=== PATIENT | male | born 1985 | race Two or more races ===

== ENCOUNTER 2024-03-19 18:05 | Emergency (ER) | payer MEDICAID, OTHER ==
[~2024-03-19] VITALS: Ht 180.3 cm; Wt 90.7 kg
[2024-03-19] MEDS ORDERED: CIPR500S2 PO (18:33)
[2024-03-19] MEDS ORDERED: LOPE2CAP40 PO (18:33)
[2024-03-19] MEDS ORDERED: ONDA4TAB5 PO (18:33)
[2024-03-19 19:03] VITALS: BP 141/98; TEMP 98.6; O2SAT 100
== END 2024-03-19 19:03 | disposition home or self-care (01) ==
LOC: ER 18:10
DX: K52.9 Noninfective gastroenteritis and colitis, unspecified (principal)